=== PATIENT | male | born 1955 | race African-American/Black ===

== ENCOUNTER 2025-04-15 08:14 | Emergency (ER) | payer MEDICARE, MEDICAID ==
[~2025-04-15] VITALS: Ht 170.2 cm; Wt 39.0 kg
[~2025-04-15 08:14] MED LIST: AMLO-905 MT; CEPH500C2 MT; TAMS-54 MT
[2025-04-15 08:17] VITALS: TEMP 36.7; O2SAT 96
[2025-04-15 09:37] VITALS: BP 129/82; PULSE 96; RESP 16
[2025-04-15] MEDS: IBUPROFEN 400MG TABLET PO ONE (09:37)
[2025-04-15] MEDS ORDERED: NAPR-681 MT (11:02)
== END 2025-04-15 11:30 | disposition home or self-care (01) ==
LOC: ER 08:14
DX: M54.50 Low back pain, unspecified (principal); I10 Essential (primary) hypertension; Z79.899 Other long term (current) drug therapy; Z79.1 Long term (current) use of non-steroidal anti-inflammatories (NSAID)
CPT/HCPCS: 72100; 99283